=== PATIENT | male | born 1995 | race Caucasian/White ===

== ENCOUNTER 2016-11-08 22:02 | Emergency (ER) | payer OTHER ==
[~2016-11-08] VITALS: Ht 185.4 cm; Wt 71.5 kg
[~2016-11-08 22:02] MED LIST: AMOXICILLIN500 MG PO; MOTRIN800 MG PO; NOHOMEMEDS; TYLENOL WITH C1 EACH PO
[2016-11-08 22:37] LABS: HEMATOCRIT 44.6 % (38.0-50.0); MCHC 33.9 G/DL (30.0-36.0); MCV 88.5 FL (86-99); PLATELET COUNT 250 K/uL (156-360); RBC DIS.WIDTH-CV 11.8 % (11.8-14.6); RBC DIS.WIDTH-SD 37.6 % (39-53); RED BLOOD COUNT 5.04 M/uL (4.00-5.50); WHITE BLOOD COUNT 10.4 K/uL (4.1-10.2)
[2016-11-08 22:47] LABS: CHLORIDE 100 mEq/L (99-109); POTASSIUM 4.4 mEq/L (3.7-5.4); SODIUM 136 mEq/L (136-147)
[2016-11-08 22:49] LABS: GLUCOSE 158 mg/dL (70-99)
[2016-11-08 22:51] LABS: ANION GAP 8 MEQ/L (2-14); TOTAL BILIRUBIN 0.6 mg/dL (0.0-1.0)
[2016-11-08 22:53] LABS: ALKALINE PHOSPHATASE 93 IU/L (3-129); GFR ESTIMATE (CALCULATED) > 59 mL/min/
[2016-11-08 22:54] LABS: UREA NITROGEN (BUN) 14 mg/dL (9-23)
[2016-11-08 22:55] LABS: DIRECT BILIRUBIN 0.3 mg/dL (0.0-0.3)
[2016-11-08 23:27] LABS: ADD MIUA? NO; BILIRUBIN NEGATIVE; BLOOD NEGATIVE; COLOR YELLOW ((YELLOW)); GLUCOSE (STRIP) NEGATIVE; KETONES 20; LEUKOCYTES NEGATIVE; NITRITE NEGATIVE; PROTEIN (STRIP) NEGATIVE; SPECIFIC GRAVITY 1.021 (1.000-1.030); UCUL ADDED? NO; UROBILINOGEN 0.2 MG/DL (0.2-1.0)
[2016-11-09 00:53] VITALS: BP 130/79
== END 2016-11-09 00:53 | disposition home or self-care (01) ==
LOC: EME 22:02
DX: G89.29 Other chronic pain (principal); R10.11 Right upper quadrant pain; Z76.5 Malingerer [conscious simulation]; R11.0 Nausea; F17.200 Nicotine dependence, unspecified, uncomplicated
CPT/HCPCS: 71020; 74176; 80053; 81003; 82248; 85027; 99281; 99285; J1885; J2060